=== PATIENT | female | born 1995 | race Two or more races ===

== ENCOUNTER 2018-05-26 09:53 | Emergency (ER) | payer BC ==
[2018-05-26] MEDS ORDERED: SUCRALFATE 1 G/10 ML UD PO ONE (10:19)
--- NOTE | 2018-05-26 10:30 | Emergency Department Record ---
History of Present Illness - General Chief complaint: Pain Stated complaint: HEADACHE, STOMACH ACHE Time Seen by Provider: 05/26/18 10:06 Source: Patient Mode of Arrival: Ambulatory Limitations: No limitations - History of Present Illness Initial comments: The patient is here due to a 2 week hx of upper AP. The pain is mainly over the epigastrium and is a sharp crampy pain that is worse after eating. She has had some nausea but no vomiting, or fever. The patient has had frequent loose stools over the past week. The patient is very concerned due to having eaten at the [employer] in [place] a month ago that was identified as having a worker with Hep A and would like to be tested for it. MD Complaint: Abdominal Pain Onset/Timin -: Week(s) Location: Other History of Same: No Severity scale (1-10): 6 Quality: Sharp Consistency: Constant Improves with: Nothing Worsens with: Nothing Associated Symptoms: Denies other symptoms - Related Data Home Medications Medication Instructions Recorded Confirmed Last Taken Aripiprazole [Abilify] 5 mg PO DAILY 05/26/18 05/26/18 05/25/18 Previous Rx's Medication Instructions Recorded Sucralfate [Carafate] 1 gm PO QID #28 tablet 05/26/18 Allergies Allergy/AdvReac Type Severity Reaction Status Date / Time Penicillins Allergy PT UNSURE Verified 05/26/18 09:59 OF REACTION sulfamethoxazole Allergy RASH Verified 05/26/18 09:59 [From Bactrim] trimethoprim [From Bactrim] Allergy RASH Verified 05/26/18 09:59 codeine AdvReac MUSCLE PAIN Verified 05/26/18 09:59 Travel Screening - Travel/Exposure Within Last 30 Days Have you traveled within the last 30 days?: No - Travel/Exposure Within Last Year Have you traveled outside the [place] in the last year?: No - Additonal Travel Details Have you been exposed to anyone with a communicable illness?: No - Travel Symptoms Symptom Screening: None Review of Systems Constitutional: Denies: Chills, Fever Eyes: Denies: Eye discharge ENT: Denies: Congestion Respiratory: Denies: Cough, Dyspnea Past Medical History - SOCIAL HISTORY Smoking Status: Never smoker Alcohol Use: Rare Drug Use: None - RESPIRATORY Hx Respiratory Disorders: Yes Hx Asthma: Yes - CARDIOVASCULAR Hx Cardio Disorders: No - NEURO Hx Neuro Disorders: No - GI Hx GI Disorders: No - Hx Genitourinary Disorders: No - ENDOCRINE Hx Endocrine Disorders: No Comment:: Being tested for diabetes - MUSCULOSKELETAL Hx Musculoskeletal Disorders: No - PSYCH Hx Psych Problems: Yes Hx Depression: Yes Comment:: schizophrenia and bipolar - HEMATOLOGY/ONCOLOGY Hx Hematology/Oncology Disorders: No Family Medical History Any Significant Family History?: Yes Hx Alcohol Use: Father Hx Diabetes: Father, Grandparents Physical Exam - General General Appearance: Alert, Oriented x3, Cooperative, No acute distress - Head Head exam: Atraumatic, Normocephalic, Normal inspection - Eye Eye exam: Normal appearance, PERRL - Neck Neck exam: Normal inspection, Full ROM. negative: Tenderness - Respiratory Respiratory exam: Normal lung sounds bilaterally. negative: Respiratory distress - Cardiovascular Cardiovascular Exam: Regular rate, Normal rhythm, Normal heart sounds - GI/Abdominal GI/Abdominal exam: Soft, Tenderness (There is mild upper abdominal tenderness. The abdomen is very soft.). negative: Guarding, Pulsatile mass, Rebound, Rigid - Extremities Extremities exam: Normal inspection, Full ROM, Normal capillary refill. negative: Tenderness - Neurological Neurological exam: Alert. negative: Motor sensory deficit Course Vital Signs 05/26/18 10:02 Temperature 98 F Pulse Rate 74 Respiratory 18 Rate Blood Pressure 110/73 Pulse Ox 98 - Reevaluation(s) Reevaluation #1: The patient is doing very well at this time. She states her AP has resolved with the Carafate. I did discuss the lab results with her and the need for further evaluation with her PCP. Due to the lab tests being mainly WNL's I do doubt she has Hep A. 05/26/18 11:18 Medical Decision Making - Data Complexity MDM Data: Labs Ordered and/or Reviewed - Lab Data Result diagrams: 05/26/18 10:35 05/26/18 10:35 Disposition Disposition: Discharge Clinical Impression: Gastritis Qualifiers: Gastritis type: unspecified gastritis Chronicity: unspecified Gastritis bleeding: without bleeding Qualified Code(s): K29.70 - Gastritis, unspecified, without bleeding Disposition: Home, Self-Care Condition: (2) Stable Instructions: Gastritis (ED) Additional Instructions: Please eat a very bland diet and take the Carafate as directed. Please see your family doctor for further evaluation and testing. Return to the ER for any worsening symptoms. Prescriptions: Sucralfate [Carafate] 1 gm PO QID #28 tablet Forms: Patient Portal Access Time of Disposition: 11:20 Quality - Quality Measures Quality Measures: N/A - Blood Pressure Screening View Details: Yes Does Patient Have Any of the Following: No Blood Pressure Classification: Normal BP Reading Systolic Measurement: 110 Diastolic Measurement: 73 Screening for High Blood Pressure: < Normal BP, F/U Not Required > [[id number]]
[2018-05-26 10:44] LABS: BASO % 0.9 % (0-6); EOS % 2.4 % (0-6); GRAN % 63.8 % (47-80); HEMATOCRIT 43.5 % (35.0-47.0); HEMOGLOBIN 14.3 gm/dl (11.6-16.0); MEAN CELL VOLUME 88.1 fl (81-97); MEAN CORPUSCULAR HEMOGLOBIN 28.9 pg (27-33); MEAN CORPUSCULAR HGB CONC 32.9 g/dl (32-36); MEAN PLATELET VOLUME 10.3 fl (7.4-10.4); MONO % 7.9 % (0-9); PLATELET COUNT 244 K/uL (130-400); RED BLOOD COUNT 4.94 M/uL (3.80-5.40); RED CELL DISTRIBUTION WIDTH 12.8 % (11.5-14.5); WHITE BLOOD COUNT W/O DIFF 8.6 K/uL (4.2-12.2)
[2018-05-26 11:03] LABS: BLOOD UREA NITROGEN 6 mg/dL (6-20); CREATININE 0.7 mg/dL (0.5-0.9); EST GLOMERULAR FILTRATION RATE > 60 mL/min
[2018-05-26 11:06] LABS: GLUCOSE,RANDOM 102 mg/dL (74-109)
[2018-05-26 11:08] LABS: ALT/SGPT 53 U/L (<33)
[2018-05-26 11:09] LABS: ALB/GLOB RATIO 1.7 (1.1-1.8); ALBUMIN 4.4 g/dL (4.0-5.0); ALKALINE PHOSPHATASE 90 U/L (35-104); AST/SGOT 24 U/L (10.0-35.0)
== END 2018-05-26 11:27 | disposition home or self-care (01) ==
LOC: ER 09:53
DX: K29.70 Gastritis, unspecified, without bleeding (principal); R51 Headache; R10.13 Epigastric pain
CPT/HCPCS: 80053; 83690; 84703; 85025; 99283